=== PATIENT | female | born 1930 | race Caucasian/White ===

== ENCOUNTER 2018-08-21 11:51 | Inpatient (IN) | payer MEDICARE, OTHER | END 2018-08-23 14:00 | disposition home or self-care (01) | DRG 592 | LOC: D.SDCHOLD 11:51 → D.MS 13:21 | PROVIDERS: ADMIT Internal Medicine Nephrology | DX: L89.302 Pressure ulcer of unspecified buttock, stage 2 (principal); E43 Unspecified severe protein-calorie malnutrition; F03.90 Unspecified dementia, unspecified severity, without behavioral disturbance, psychotic disturbance, mood disturbance, and anxiety; R63.4 Abnormal weight loss; R62.7 Adult failure to thrive; I10 Essential (primary) hypertension; D64.9 Anemia, unspecified; I25.10 Atherosclerotic heart disease of native coronary artery without angina pectoris; E78.5 Hyperlipidemia, unspecified; Z68.20 Body mass index [BMI] 20.0-20.9, adult; J44.9 Chronic obstructive pulmonary disease, unspecified ==

== ENCOUNTER → 2018-08-27 09:13 | Outpatient (CLI) | payer MEDICARE, OTHER ==
[2018-08-23 10:13] VITALS: BMI 20.9
[~2018-08-27 09:13] MED LIST: BAYER CHEWABLE81 MG PO; CALMOSEPTINE OI71 GM TOPICAL; CARDIZEM CD180 MG PO; COLACE100 MG PO; DONEPEZIL HCL10 MG PO; HYDROCODON-ACE1 EA10; LEVOXYL50 MCG PO; LISINOPRIL-HCTZ1 T11 PO; NAMENDA XR28 MG PO; PLAVIX75 MG PO; SANTYL30 GM TOPICAL; ZOCOR20 MG PO
[2018-08-27 09:47] LABS: LYMPHOCYTES 14.9 % (15-50); MCH 31.5 pg (26.0-34.0); MCHC 34.4 g/dL (31.0-37.0); MCV 91.7 fL (80.0-100.0); MEAN PLATELET VOLUME 9.2 fL (7.4-10.4); NEUTROPHILS 70.6 % (40-80); PLATELET COUNT 169 10x3/uL (130-400); RBC 3.49 10x6/uL (4.00-5.40); WBC 6.3 10x3/uL (4.8-10.8)
[2018-08-27 09:50] LABS: ANION GAP 11.4 mmol/L (8-16); CALCIUM 9.3 mg/dL (8.5-10.1); CARBON DIOXIDE 28.6 mmol/L (21.0-32.0); INR 1.11 (0.85-1.17); PROTIME 13.8 SECONDS (11.6-15.0)
== END | disposition home or self-care (01) ==
LOC: D.OPS 09:13 → EDSTATUS 12:00
PROVIDERS: Anesthesiology; ATTEND Surgery
DX: S81.802A Unspecified open wound, left lower leg, initial encounter (principal)

== ENCOUNTER 2018-09-11 09:36 | Day surgery (SDC) | payer MEDICARE, OTHER ==
[~2018-09-11] VITALS: Ht 162.6 cm; Wt 55.8 kg
[~2018-09-11 09:36] MED LIST changes: +KEFLEX500 MG PO
[2018-09-11 10:13] LABS: ANION GAP 14.1 mmol/L (8-16); CALCIUM 9.2 mg/dL (8.5-10.1); CARBON DIOXIDE 26.7 mmol/L (21.0-32.0); POTASSIUM - SERUM 3.8 mmol/L (3.5-5.1)
[2018-09-11 10:47] VITALS: Ht 162.6 cm; Wt 55.8 kg
[2018-09-11 11:15] LABS: BASOPHILS 0.4 % (0-2); HEMATOCRIT 33.9 % (36.0-48.0); HEMOGLOBIN 11.3 g/dL (12-16); IMMATURE GRANULOCYTES 0.1 % (0-5); LYMPHOCYTES 11.5 % (15-50); MCH 30.8 pg (26.0-34.0); MCHC 33.3 g/dL (31.0-37.0); MCV 92.4 fL (80.0-100.0); MEAN PLATELET VOLUME 9.6 fL (7.4-10.4); MONOCYTES 8.2 % (2-11); NEUTROPHILS 75.8 % (40-80); PLATELET COUNT 158 10x3/uL (130-400); RBC 3.67 10x6/uL (4.00-5.40); RDW 13.6 % (11.5-14.5); WBC 6.8 10x3/uL (4.8-10.8)
--- NOTE | 2018-09-11 18:20 | NUR ---
[address] CHEUNG SPOKE TO FAMILY AND INSTRUCTIONS GIVEN. DISCHARGE INSTRUCTIONS GIVEN TO PATIENT AND FAMILY. PT PLESENTLY MILDLY CONFUSED. AWARE OF SURGERY AND SHE NEEDS ASSITANCE GETTING UP AND MOVING. ASSISTED TO BATHROOM AND URINATED A SMALL AMT.
--- NOTE | 2018-09-13 13:55 | OP ---
PATIENT NAME: YISSEL CEDEÑO MEDICAL RECORD: [id number] :[birth year] LOCATION:[facility] ADMISSION DATE: SURGEON: ERICKSON CHEUNG MD DATE OF OPERATION: 09/11/2018 PREOPERATIVE DIAGNOSIS: Nonhealing wound of the left lateral leg. POSTOPERATIVE DIAGNOSIS: Nonhealing wound of the left lateral leg, please see dimensions below. PROCEDURES: Excisional debridement of nonhealing wound of the left lateral leg. Dimensions of the debridement, including margins, measures 4.2 x 3.0 cm. This was a sharp debridement. The debrided tissues include skin, subcutaneous tissue, and exudate as well as granulation tissue. ANESTHESIA: General. COMPLICATIONS: None. DRAINS: None. The risks, possible complications and alternatives to the procedure were explained to the patient. She elects to proceed. The discussion specifically included, but was not limited to, bleeding requiring emergency reoperation, infection, as well as need for additional debridement procedure or procedures including possible skin grafting. OPERATIVE COURSE: The patient was conveyed to the operating room electively on 09/11/2018. General anesthesia was induced by the anesthesia staff. The left leg was sterilely prepped and draped. Utilizing a scalpel, I excised some nonviable tissue. Utilizing a curette, I performed curettage of the wound. There was some bleeding. This was controlled with electrocautery. The debrided dimensions are listed above. The debrided tissues are listed above. I debrided back to viable bleeding tissue. A saline wet to dry dressing was then applied. The patient was then extubated and conveyed to the post-anesthesia care unit where she was in stable condition. She is on cephalexin. I have told the family, I want her to finish her current regimen of the cephalexin and then she can stop taking the antibiotics. I want her to have a saline wet to dry dressing changes and a family member states that he can do this without the need home health care. TRANSINT:[id number] Voice Confirmation ID: [id number] DOCUMENT ID: [id number] ERICKSON CHEUNG MD at 1355 CC: [id number] DICTATION DATE: 09/12/18 1128 ARCHITECTURAL DESIGN LECTURER: 09/12/18 1159 [facility] 09/11/18 [place] [address]
== END 2018-09-11 18:00 | disposition home or self-care (01) ==
LOC: D.OPS 09:36 → D.PAN 11:45 → D.OPS 11:45
PROVIDERS: Anesthesiology; ATTEND Surgery
DX: L89.892 Pressure ulcer of other site, stage 2 (principal)

== ENCOUNTER 2019-12-06 07:55 | Emergency (ER) | payer MEDICARE, OTHER ==
[~2019-12-06] VITALS: Ht 162.6 cm; Wt 63.6 kg
[2019-12-06 07:56] VITALS: BP 182/123; Ht 162.6 cm; Wt 63.6 kg
[2019-12-06 08:31] LABS: ANION GAP 14.9 mmol/L (8-16); CALCIUM 9.2 mg/dL (8.5-10.1); CARBON DIOXIDE 24.9 mmol/L (21.0-32.0); POTASSIUM - SERUM 3.8 mmol/L (3.5-5.1)
[2019-12-06 08:37] LABS: ALBUMIN 2.9 g/dL (3.4-5.0); BILIRUBIN - TOTAL 0.71 mg/dL (0.2-1.3); PROTEIN - SERUM 6.8 g/dL (6.4-8.2)
[2019-12-06 08:51] LABS: BASOPHILS 0.1 % (0-2); EOSINOPHILS 1.9 % (0-7); HEMATOCRIT 36.3 % (36.0-48.0); HEMOGLOBIN 11.5 g/dL (12-16); IMMATURE GRANULOCYTES 0.2 % (0-5); LYMPHOCYTES 10.5 % (15-50); MCH 29.8 pg (26.0-34.0); MCHC 31.7 g/dL (31.0-37.0); MEAN PLATELET VOLUME 9.5 fL (7.4-10.4); MONOCYTES 8.4 % (2-11); NEUTROPHILS 78.9 % (40-80); PLATELET COUNT 155 10x3/uL (130-400); RBC 3.86 10x6/uL (4.00-5.40); RDW 14.3 % (11.5-14.5)
[2019-12-06 09:24] LABS: BACTERIA MANY /hpf (NONE SEEN); BILIRUBIN NEGATIVE (NEGATIVE); EPITHELIAL CELLS 0-5 /hpf (0-5); KETONE NEGATIVE (NEGATIVE); NITRITE POSITIVE (NEGATIVE); RED CELLS - URINE 0-5 /hpf (0-5); UROBILINOGEN NORMAL (NORMAL); WHITE CELLS - URINE 25-50 /hpf (0-5)
[2019-12-06] MEDS ORDERED: KEFLEX500 MG PO (09:55)
[2019-12-06] MEDS ORDERED: MACROBID100 MG PO (09:55)
== END 2019-12-06 10:54 | disposition home or self-care (01) ==
LOC: D.ER 07:55
PROVIDERS: Family Medicine
DX: M25.552 Pain in left hip (principal); M25.551 Pain in right hip; M79.18 Myalgia, other site; T14.8XXA Other injury of unspecified body region, initial encounter; N39.0 Urinary tract infection, site not specified; W19.XXXA Unspecified fall, initial encounter; Y93.9 Activity, unspecified; Y92.9 Unspecified place or not applicable; I10 Essential (primary) hypertension; E07.9 Disorder of thyroid, unspecified; F03.90 Unspecified dementia, unspecified severity, without behavioral disturbance, psychotic disturbance, mood disturbance, and anxiety; J44.9 Chronic obstructive pulmonary disease, unspecified